=== PATIENT | male | born 2000 | race Caucasian/White ===

== ENCOUNTER 2023-05-30 15:58 | Emergency (ER) | payer BC ==
[2023-05-30] MEDS ORDERED: Ibuprofen 600 MG Tab PO ONE (17:06)
== END 2023-05-30 17:25 | disposition left against medical advice (07) ==
LOC: MW.ED 15:58
DX: B34.9 Viral infection, unspecified (principal); R51.9 Headache, unspecified
CPT/HCPCS: 99283

== ENCOUNTER 2025-05-25 18:04 | Emergency (ER) | payer BC ==
[2025-05-25] MEDS: Tetracaine HCl/PF 0.5% 4 ML Bottle EYERT ONE (23:06)
== END 2025-05-25 23:07 | disposition left against medical advice (07) ==
LOC: MW.ED 18:04
DX: Z53.21 Procedure and treatment not carried out due to patient leaving prior to being seen by health care provider (principal)
CPT/HCPCS: J3490

== ENCOUNTER 2025-05-26 19:20 | Emergency (ER) | payer BC ==
[2025-05-26] MEDS ORDERED: Sodium Chloride 0.9% 2.5 ML Syringe FLUSH PRN (19:39)
[2025-05-26] MEDS ORDERED: Sodium Chloride 0.9% 10 ML Syringe FLUSH PRN (19:39)
[2025-05-26 19:49] LABS: MEAN PLATELET VOLUME 8.8 fL (9.4-12.4); NRBC ABSOLUTE 0.00 K/uL (0.00-0.02); NRBC PERCENT 0.0 /100WBC (0.0-0.2); PLATELET COUNT,PLT 271 K/uL (150-400); RED BLOOD CELL COUNT 4.24 M/uL (4.52-5.90); WHITE BLOOD CELL COUNT,WBC 6.40 K/uL (3.9-11.3)
[2025-05-26] MEDS: Iopamidol 755 Mg/ML 100 ML Bottle IVPUSH ONE (19:56)
[2025-05-26 20:10] LABS: BLOOD UREA NITROGEN,BUN 24.0 mg/dL (7.0-18.0); CARBON DIOXIDE,CO2 29.5 mmol/L (21.0-32.0); CHLORIDE,CL 100.0 mmol/L (98-107); CREATININE 1.3 mg/dL (0.8-1.3); EST CRCL DRUG DOSING (CG) 86.86 mL/min; GLUCOSE RANDOM 92.0 mg/dL (74-106); POTASSIUM,K 4.1 mmol/L (3.5-5.1); SODIUM,NA 138.0 mmol/L (136-148)
[2025-05-26 20:17] LABS: ESTIMATED GFR 78.0 mL/min (>60)
[2025-05-26] MEDS ORDERED: Clindamycin Phosphate in D5W 600 MG in Premix Bag 1 BAG IV ONE (20:28)
== END 2025-05-26 20:50 | disposition home or self-care (01) ==
LOC: MW.ED 19:20
DX: L03.213 Periorbital cellulitis (principal)
CPT/HCPCS: 36415; 70487; 80048; 85027; 99284; Q9967

== ENCOUNTER 2025-05-28 05:55 | Inpatient (IN) | payer BC ==
[2025-05-28] MEDS ORDERED: Sodium Chloride 0.9% 2.5 ML Syringe FLUSH PRN ×2 (06:38→09:48)
[2025-05-28] MEDS ORDERED: Sodium Chloride 0.9% 10 ML Syringe FLUSH PRN ×2 (06:38→09:48)
[2025-05-28 06:53] LABS: BASOPHILS ABSOLUTE AUTO 0.04 K/uL (0.00-0.20); BASOPHILS PERCENT AUTO 1.0 % (0.0-1.0); EOSINOPHILS ABSOLUTE AUTO 0.03 K/uL (0.00-0.45); EOSINOPHILS PERCENT AUTO 0.7 % (0.0-6.0); IMMATURE GRAN ABSOLUTE AUTO 0.01 K/uL (0.00-0.05); IMMATURE GRAN PERCENT AUTO 0.2 % (0.0-0.4); LYMPHOCYTES ABSOLUTE AUTO 0.98 K/uL (1.00-4.80); LYMPHOCYTES PERCENT AUTO 24.4 % (24.0-44.0); MEAN PLATELET VOLUME 8.7 fL (9.4-12.4); MONOCYTES ABSOLUTE AUTO 0.62 K/uL (0.00-0.80); MONOCYTES PERCENT AUTO 15.4 % (0.0-8.0); NEUTROPHILS ABSOLUTE AUTO 2.34 K/uL (1.80-7.70); NEUTROPHILS PERCENT AUTO 58.3 % (41.0-71.0); NRBC ABSOLUTE 0.00 K/uL (0.00-0.02); NRBC PERCENT 0.0 /100WBC (0.0-0.2); PLATELET COUNT,PLT 255 K/uL (150-400); RED BLOOD CELL COUNT 4.29 M/uL (4.52-5.90); WHITE BLOOD CELL COUNT,WBC 4.02 K/uL (3.9-11.3)
[2025-05-28] MEDS: Iopamidol 755 MG/ML 500 ML Multipack Bottle IVPUSH STA (07:03)
[2025-05-28] MEDS: Ampicillin/Sulbactam Na 3 GM in Sodium Chloride 0.9% 100 ML IV ONE (07:08)
[2025-05-28 07:33] LABS: A/G RATIO 1.6 (0.9-1.6); ALANINE AMINOTRANSFERASE,ALT 37.0 IU/L (14-63); ASPARTATE AMNIOTRANSFERASE,AST 21.0 IU/L (15-37); BILIRUBIN TOTAL 0.6 mg/dL (0.2-1.0); BLOOD UREA NITROGEN,BUN 14.0 mg/dL (7.0-18.0); CARBON DIOXIDE,CO2 26.0 mmol/L (21.0-32.0); CHLORIDE,CL 104.0 mmol/L (98-107); CREATININE 1.1 mg/dL (0.8-1.3); EST CRCL DRUG DOSING (CG) 102.66 mL/min; ESTIMATED GFR 96.0 mL/min (>60); GLUCOSE RANDOM 102.0 mg/dL (74-106); POTASSIUM,K 4.4 mmol/L (3.5-5.1); PROTEIN TOTAL,TP 6.7 g/dL (6.4-8.2); SODIUM,NA 140.0 mmol/L (136-148)
[2025-05-28] MEDS: Ketorolac 30 MG/ML SDV IVPUSH ONE (07:49)
[2025-05-28] MEDS: Clindamycin Phosphate in D5W 300 MG in Premix Bag 1 BAG IV SCH (10:32)
[2025-05-28] MEDS: diphenhydrAMINE 50 MG/ML SDV IVPUSH ONE (20:15)
[2025-05-29 05:32] LABS: BASOPHILS ABSOLUTE AUTO 0.03 K/uL (0.00-0.20); BASOPHILS PERCENT AUTO 0.9 % (0.0-1.0); EOSINOPHILS ABSOLUTE AUTO 0.06 K/uL (0.00-0.45); EOSINOPHILS PERCENT AUTO 1.8 % (0.0-6.0); IMMATURE GRAN ABSOLUTE AUTO 0.01 K/uL (0.00-0.05); IMMATURE GRAN PERCENT AUTO 0.3 % (0.0-0.4); LYMPHOCYTES ABSOLUTE AUTO 1.32 K/uL (1.00-4.80); LYMPHOCYTES PERCENT AUTO 38.7 % (24.0-44.0); MEAN PLATELET VOLUME 8.5 fL (9.4-12.4); MONOCYTES ABSOLUTE AUTO 0.51 K/uL (0.00-0.80); MONOCYTES PERCENT AUTO 15.0 % (0.0-8.0); NEUTROPHILS ABSOLUTE AUTO 1.48 K/uL (1.80-7.70); NEUTROPHILS PERCENT AUTO 43.3 % (41.0-71.0); NRBC ABSOLUTE 0.00 K/uL (0.00-0.02); NRBC PERCENT 0.0 /100WBC (0.0-0.2); PLATELET COUNT,PLT 212 K/uL (150-400); RED BLOOD CELL COUNT 3.99 M/uL (4.52-5.90); WHITE BLOOD CELL COUNT,WBC 3.41 K/uL (3.9-11.3)
[2025-05-29 05:51] LABS: BLOOD UREA NITROGEN,BUN 10.0 mg/dL (7.0-18.0); CARBON DIOXIDE,CO2 27.4 mmol/L (21.0-32.0); CHLORIDE,CL 107.0 mmol/L (98-107); CREATININE 1.0 mg/dL (0.8-1.3); EST CRCL DRUG DOSING (CG) 112.92 mL/min; GLUCOSE RANDOM 99.0 mg/dL (74-106); POTASSIUM,K 4.2 mmol/L (3.5-5.1); SODIUM,NA 143.0 mmol/L (136-148)
[2025-05-29 05:57] LABS: ESTIMATED GFR 107.0 mL/min (>60)
[2025-05-29] MEDS ORDERED: Naloxone 0.4 MG/ML SDV IVPUSH PRN (10:40)
[2025-05-29] MEDS: metroNIDAZOLE/Normal Saline 500 MG in Premix Bag 1 BAG IV SCH (11:07)
[2025-05-29] MEDS: cefTRIAXone 2 GM in Water For Injection, Sterile 20 ML IVPUSH SCH (11:08)
[2025-05-29] MEDS ORDERED: Tetracaine HCl/PF 0.5% 4 ML Bottle EYERT ONE (15:39)
[2025-05-29] MEDS: Tetracaine HCl/PF 0.5% 4 ML Bottle EYERT ONE (17:40)
[2025-05-30] MEDS: metroNIDAZOLE/Normal Saline 100 ML ONE (03:21)
[2025-05-30 05:39] LABS: BASOPHILS ABSOLUTE AUTO 0.04 K/uL (0.00-0.20); BASOPHILS PERCENT AUTO 0.7 % (0.0-1.0); EOSINOPHILS ABSOLUTE AUTO 0.12 K/uL (0.00-0.45); EOSINOPHILS PERCENT AUTO 2.1 % (0.0-6.0); IMMATURE GRAN ABSOLUTE AUTO 0.02 K/uL (0.00-0.05); IMMATURE GRAN PERCENT AUTO 0.4 % (0.0-0.4); LYMPHOCYTES ABSOLUTE AUTO 1.23 K/uL (1.00-4.80); LYMPHOCYTES PERCENT AUTO 22.0 % (24.0-44.0); MEAN PLATELET VOLUME 8.6 fL (9.4-12.4); MONOCYTES ABSOLUTE AUTO 0.61 K/uL (0.00-0.80); MONOCYTES PERCENT AUTO 10.9 % (0.0-8.0); NEUTROPHILS ABSOLUTE AUTO 3.57 K/uL (1.80-7.70); NEUTROPHILS PERCENT AUTO 63.9 % (41.0-71.0); NRBC ABSOLUTE 0.00 K/uL (0.00-0.02); NRBC PERCENT 0.0 /100WBC (0.0-0.2); PLATELET COUNT,PLT 243 K/uL (150-400); RED BLOOD CELL COUNT 4.31 M/uL (4.52-5.90); WHITE BLOOD CELL COUNT,WBC 5.59 K/uL (3.9-11.3)
[2025-05-30 05:58] LABS: BLOOD UREA NITROGEN,BUN 13.0 mg/dL (7.0-18.0); CARBON DIOXIDE,CO2 28.2 mmol/L (21.0-32.0); CHLORIDE,CL 104.0 mmol/L (98-107); CREATININE 1.1 mg/dL (0.8-1.3); EST CRCL DRUG DOSING (CG) 102.66 mL/min; GLUCOSE RANDOM 102.0 mg/dL (74-106); POTASSIUM,K 4.2 mmol/L (3.5-5.1); SODIUM,NA 141.0 mmol/L (136-148)
[2025-05-30 06:09] LABS: ESTIMATED GFR 96.0 mL/min (>60)
[2025-05-30] MEDS: Iopamidol 755 MG/ML 500 ML Multipack Bottle IVPUSH STA (11:15)
[2025-05-31 05:59] LABS: BASOPHILS ABSOLUTE AUTO 0.06 K/uL (0.00-0.20); BASOPHILS PERCENT AUTO 1.0 % (0.0-1.0); EOSINOPHILS ABSOLUTE AUTO 0.13 K/uL (0.00-0.45); EOSINOPHILS PERCENT AUTO 2.1 % (0.0-6.0); IMMATURE GRAN ABSOLUTE AUTO 0.02 K/uL (0.00-0.05); IMMATURE GRAN PERCENT AUTO 0.3 % (0.0-0.4); LYMPHOCYTES ABSOLUTE AUTO 1.79 K/uL (1.00-4.80); LYMPHOCYTES PERCENT AUTO 28.8 % (24.0-44.0); MEAN PLATELET VOLUME 8.6 fL (9.4-12.4); MONOCYTES ABSOLUTE AUTO 0.63 K/uL (0.00-0.80); MONOCYTES PERCENT AUTO 10.1 % (0.0-8.0); NEUTROPHILS ABSOLUTE AUTO 3.59 K/uL (1.80-7.70); NEUTROPHILS PERCENT AUTO 57.7 % (41.0-71.0); NRBC ABSOLUTE 0.00 K/uL (0.00-0.02); NRBC PERCENT 0.0 /100WBC (0.0-0.2); PLATELET COUNT,PLT 238 K/uL (150-400); RED BLOOD CELL COUNT 4.14 M/uL (4.52-5.90); WHITE BLOOD CELL COUNT,WBC 6.22 K/uL (3.9-11.3)
[2025-05-31 06:20] LABS: BLOOD UREA NITROGEN,BUN 11.0 mg/dL (7.0-18.0); CARBON DIOXIDE,CO2 28.6 mmol/L (21.0-32.0); CHLORIDE,CL 105.0 mmol/L (98-107); CREATININE 1.0 mg/dL (0.8-1.3); EST CRCL DRUG DOSING (CG) 112.92 mL/min; GLUCOSE RANDOM 101.0 mg/dL (74-106); POTASSIUM,K 3.9 mmol/L (3.5-5.1); SODIUM,NA 140.0 mmol/L (136-148)
[2025-05-31 06:25] LABS: ESTIMATED GFR 107.0 mL/min (>60)
== END 2025-05-31 10:06 | disposition home or self-care (01) | DRG 383 ==
LOC: MW.ED 05:55 → MW.MS 07:43
PROVIDERS: ADMIT Internal Medicine; ATTEND Internal Medicine
DX: L03.213 Periorbital cellulitis (principal)
CPT/HCPCS: 36415; 70487; 70487-26; 80048; 80053; 80202; 85025; 86140; 96365; 99284; 99285-25; A9270-GY; J0295; J0696; J0736; J1200; J1308; J1650; J1836; J1885; J2543; J3370; J3371; J3490; J7030; J7050; Q9967

== ENCOUNTER 2025-06-01 18:52 | Emergency (ER) | payer BC ==
[2025-06-01 19:41] LABS: BASOPHILS ABSOLUTE AUTO 0.03 K/uL (0.00-0.20); BASOPHILS PERCENT AUTO 0.6 % (0.0-1.0); EOSINOPHILS ABSOLUTE AUTO 0.05 K/uL (0.00-0.45); EOSINOPHILS PERCENT AUTO 1.0 % (0.0-6.0); IMMATURE GRAN ABSOLUTE AUTO 0.03 K/uL (0.00-0.05); IMMATURE GRAN PERCENT AUTO 0.6 % (0.0-0.4); LYMPHOCYTES ABSOLUTE AUTO 1.90 K/uL (1.00-4.80); LYMPHOCYTES PERCENT AUTO 37.6 % (24.0-44.0); MEAN PLATELET VOLUME 8.5 fL (9.4-12.4); MONOCYTES ABSOLUTE AUTO 0.46 K/uL (0.00-0.80); MONOCYTES PERCENT AUTO 9.1 % (0.0-8.0); NEUTROPHILS ABSOLUTE AUTO 2.58 K/uL (1.80-7.70); NEUTROPHILS PERCENT AUTO 51.1 % (41.0-71.0); NRBC ABSOLUTE 0.00 K/uL (0.00-0.02); NRBC PERCENT 0.0 /100WBC (0.0-0.2); PLATELET COUNT,PLT 301 K/uL (150-400); RED BLOOD CELL COUNT 4.76 M/uL (4.52-5.90); WHITE BLOOD CELL COUNT,WBC 5.05 K/uL (3.9-11.3)
[2025-06-01 20:07] LABS: A/G RATIO 1.5 (0.9-1.6); ALANINE AMINOTRANSFERASE,ALT 39 IU/L (14-63); ASPARTATE AMNIOTRANSFERASE,AST 26 IU/L (15-37); BILIRUBIN TOTAL 0.2 mg/dL (0.2-1.0); BLOOD UREA NITROGEN,BUN 14 mg/dL (7.0-18.0); CARBON DIOXIDE,CO2 25.4 mmol/L (21.0-32.0); CHLORIDE,CL 103 mmol/L (98-107); CREATININE 1.3 mg/dL (0.8-1.3); GLUCOSE RANDOM 103 mg/dL (74-106); POTASSIUM,K 3.8 mmol/L (3.5-5.1); PROTEIN TOTAL,TP 7.6 g/dL (6.4-8.2); SODIUM,NA 140 mmol/L (136-148)
[2025-06-01] MEDS: Iopamidol 755 MG/ML 500 ML Multipack Bottle IVPUSH STA (20:10)
[2025-06-01 20:21] LABS: ESTIMATED GFR 78 mL/min (>60)
== END 2025-06-01 21:54 | disposition home or self-care (01) ==
LOC: MW.ED 18:52
DX: L03.213 Periorbital cellulitis (principal); Z79.899 Other long term (current) drug therapy; Z75.3 Unavailability and inaccessibility of health-care facilities
CPT/HCPCS: 36415; 70487; 80053; 85025; 99283; J1100; Q9967